=== PATIENT | male | born 1950 | race Caucasian/White ===

== ENCOUNTER 2021-06-13 16:53 | Inpatient (IN) | payer MEDICARE ==
[~2021-06-13] VITALS: Ht 185.4 cm; Wt 70.3 kg
[2021-06-13 16:55] VITALS: BP 123/65
[2021-06-13] MEDS ORDERED: TYLENOL325 M1 PO (17:07)
[2021-06-13] MEDS ORDERED: LIPITOR 20 MG T20 M1 PO (17:08)
[2021-06-13] MEDS ORDERED: ASA81BEC PO (17:08)
[2021-06-13] MEDS ORDERED: DONEPEZIL HCL10 M1 PO (17:09)
[2021-06-13] MEDS ORDERED: NITROSTAT0.4 M1 SUBLING (17:10)
[2021-06-13] MEDS ORDERED: PROSCAR 5MG TABL5 MG PO (17:10)
[2021-06-13] MEDS ORDERED: NAMENDA 10 MG T10 MG PO (17:10)
[2021-06-13] MEDS ORDERED: PROTONIX40 M2 PO (17:11)
[2021-06-13] MEDS ORDERED: CEFUROXIME250 MG PO (17:11)
[2021-06-13] MEDS ORDERED: TESSALON PERLE100 M1 PO (17:11)
[2021-06-13] MEDS ORDERED: DESYREL150 MG PO (17:11)
[2021-06-13 17:12] LABS: HEMATOCRIT 36.6 % (42.0-52.0); HEMOGLOBIN 11.5 gm/dL (14.0-18.0); MCH 24.4 pg (26.0-34.0); MCHC 31.4 g/dL (28.0-37.0); MCV 77.7 fL (80.0-100.0); MPV 8.7 fl. (7.2-11.1); NUCLEATED RBCS 0 /100WBC; PLATELET COUNT* 300 thou/uL (150-400); RBC 4.71 mil/uL (4.50-6.00); RDW-CV 14.8 % (10.5-14.5); WBC 19.1 thou/uL (4.0-11.0)
[2021-06-13 17:22] LABS: CREATININE 3.1 mg/dL (0.6-1.3); POTASSIUM 4.6 mmol/L (3.5-5.1)
[2021-06-13 17:26] LABS: ALBUMIN 2.9 g/dL (3.4-5.0); TOTAL BILIRUBIN 0.5 mg/dL (<0.1-1.0); TOTAL PROTEIN 8.1 g/dL (6.4-8.2)
[2021-06-13 17:40] LABS: URINE BILIRUBIN NEGATIVE (Negative); URINE BLOOD 3+ (Negative); URINE CLARITY HAZY; URINE COLOR YELLOW; URINE GLUCOSE-RANDOM NEGATIVE (Negative); URINE KETONES NEGATIVE (Negative); URINE LEUKOCYTES-REFLEX 2+ (Negative); URINE NITRITE-REFLEX POSITIVE (Negative); URINE PROTEIN 2+ (Negative); URINE SPECIFIC GRAVITY 1.025 (1.005-1.030); URINE UROBILINOGEN 0.2 E.U./dl (0.2-1.0)
[2021-06-13 17:52] LABS: URINE WBC-REFLEX >25 Many /HPF (0-5); WBC CLUMPS Few (None Seen)
[2021-06-13 17:53] LABS: CASTS None Seen /LPF (None Seen); CRYSTALS None Seen /LPF (None Seen); MUCUS None Seen strn/LPF (None Seen); SQUAMOUS 0-3 Few /LPF (0-3); URINE RBC >20 Many /HPF (0-2)
[2021-06-13 17:57] LABS: ABSOLUTE MONOCYTES 0.6 thou/uL (0.0-1.2); ABSOLUTE NEUTROPHILS 17.6 thou/uL (1.6-8.1); MICROCYTES 1+; PLATELET ESTIMATE ADEQUATE
[2021-06-13 17:58] LABS: ANISOCYTOSIS Occasional
--- NOTE | 2021-06-13 18:00 | NUR ---
A LEG BAG WAS PLACED ON PATIENT'S RIGHT LEG WITH URINE DRAINING INTO BAG. A NEW BRIEF WAS PLACED ON PATIENT WELL JEANS. PT LYING IN SUPINE POSITION WITH HOB ELEVATED AND PT IS CONNECTED TO ALL MONITORS.
--- NOTE | 2021-06-13 19:40 | NUR ---
PROVIDER NOTIFIED AT BEDSIDE REGARDING PT POSITIVE SEPSIS SCREENING.
--- NOTE | 2021-06-13 20:00 | NUR ---
DR. HOPKINS PAGED REGARDING PT BEING HYPOTENSIVE IN THE 70S. PROVIDER STATED TO BOLUS PT HOWEVER PT IS CURRENTLY BEING BOLUS. FLUIDS WILL CONTINUE AT 125/HR AFTER BOLUS PER PROVIDERS ORDERS. WILL CONTINUE TO MONITOR PT.
[2021-06-13 22:00] VITALS: BP 78/54
[2021-06-14 00:43] LABS: HEMATOCRIT 34.5 % (42.0-52.0); HEMOGLOBIN 10.5 gm/dL (14.0-18.0); MCH 24.4 pg (26.0-34.0); MCHC 30.6 g/dL (28.0-37.0); MCV 79.6 fL (80.0-100.0); MPV 8.9 fl. (7.2-11.1); RBC 4.33 mil/uL (4.50-6.00); RDW-CV 14.9 % (10.5-14.5); WBC 15.5 thou/uL (4.0-11.0)
[2021-06-14 00:45] LABS: CREATININE 2.8 mg/dL (0.6-1.3); POTASSIUM 4.5 mmol/L (3.5-5.1)
--- NOTE | 2021-06-14 00:46 | NUR ---
DR. HOPKINS NOTIFIED REGARDING PT BP SUSTAINING IN THE 70S. WILL BLADDER SCAN DUE TO DECREASE UOP. NO FURTHER INTERVENTIONS GIVENS AT THIS TIME. WILL CONTINUE TO MONITOR.
[2021-06-14 02:30] VITALS: BP 83/61
--- NOTE | 2021-06-14 05:10 | NUR ---
DR. HOPKINS PAGED REGARDING PTS COMPLAINTS OF CHEST PAIN. EKG DONE. NEW ORDERS PLACED PER PROVIDERS ORDERS. WILL CONTINUE TO MONITOR.
[2021-06-14 06:42] LABS: BE -8.7 mmol/L (-2 to +3); PCO2 25.3 mmHg (35.0-45.0); pH 7.387 (7.340-7.450)
[2021-06-14 06:44] LABS: PO2 252.7 mmHg (75.0-100.0)
--- NOTE | 2021-06-14 06:53 | NUR ---
RESULTS FOR TROPONIN CALLED TO DR. HOPKINS. NO FURTHER INTERVENTION AT THIS TIME.
[2021-06-14 06:58] VITALS: BP 108/72
--- NOTE | 2021-06-14 07:19 | NUR ---
DR. KOHLI PAGED REGARDING CRITICAL RESULTS. PROVIDER STATED TO TAKE PT OFF NRB AND PUT PT BACK ON NC AT 6L. HANDOFF GIVEN TO ALLEY BOCANEGRA
[2021-06-14 11:00] VITALS: BP 92/63
--- NOTE | 2021-06-14 11:24 | 2DMMODE ---
[place] [address] 2 D/M-MODE ECHOCARDIOGRAM Name: EDDIE GONG Room: [place] [address] ADM IN [place].#: [id number] Admission: 06/13/21 Attend Phys: Jose Onofre Discharge: Date of : 48 Date of Service: 06/14/21 1124 Report #: [id number] THIS REPORT FOR: cc: Sonido Pineda MD, Dennis R MD Liston, Michael J. MD [facility] ~ APPROVED REPORT Study performed: 06/14/2021 10:11:43 EXAM: Comprehensive 2D, Doppler, and color-flow Echocardiogram Patient Location: In-Patient Room #: ER Status: routine BSA: 1.93 HR: 118 bpm BP: 90/61 mmHg Rhythm: NSR Other Information Study Quality: Good Indications Elevated Troponin 2D Dimensions IVSd: 9.38 (7-11mm) LVOT Diam: 19.60 (18-24mm) LVDd: 43.64 mm PWd: 11.28 (7-11mm) Ascending Ao: 36.51 (22-36mm) LVDs: 24.45 (25-40mm) Aortic Root: 37.65 mm Volumes Left Atrial Volume (Systole) LA ESV Index: 35.60 mL/m2 Aortic Valve AoV Peak Bruno.: 0.97 m/s AO Peak Gr.: 3.78 mmHg LVOT Max P.58 mmHg AO Mean Gr.: 2.07 mmHg LVOT Mean P.29 mmHg LVOT Max V: 0.80 m/s AO V2 VTI: 11.16 cm LVOT Mean V: 0.53 m/s CLAUS (VTI): 2.60 cm2 LVOT V1 VTI: 9.61 [place] [address] 2 D/M-MODE ECHOCARDIOGRAM Name: EDDIE GONG Room: [address] IN [facility]#: [id number] Admission: 06/13/21 Attend Phys: Jose Onofre Discharge: Date of : 48 Date of Service: 06/14/21 1124 Report #: [id number] Mitral Valve E/A Ratio: 1.05 MV Decel. Time: 149.18 ms MV E Max Bruno.: 0.84 m/s MV PHT: 43.26 ms MVA (PHT): 5.09 cm2 TDI E/Lateral E': 5.25 E/Medial E': 10.50 Medial E' Bruno.: 0.08 m/s Lateral E' Bruno.: 0.16 m/s Tricuspid Valve RAP Estimate: 15.00 mmHg TR Peak Gr.: 34.51 mmHg RVSP: 49.00 mmHg PA Pressure: 49.00 mmHg Left Ventricle The left ventricle is normal size. There is normal LV segmental wall motion. There is normal left ventricular wall thickness. Left ventricular systolic function is normal. LVEF is 60-65%. Transmitral Doppler flow pattern suggests impaired LV relaxation. Right Ventricle Right ventricle is dilated. Moderately decreased with diffuse hypokinesis and apical sparing (McConnel'sl sign). Atria Left atrium is borderline dilated. Right atrium is moderately dilated. Aortic Valve The aortic valve is normal in structure. Trace aortic regurgitation. There is no aortic valvular stenosis. Mitral Valve The mitral valve is normal in structure. Mild mitral regurgitation. No evidence of mitral valve stenosis. There is mild mitral valve prolapse. Tricuspid Valve The tricuspid valve is normal in structure. Mild tricuspid regurgitation. Moderate pulmonary hypertension. The RVSP is 55-60 mmHg. [place] [address] 2 D/M-MODE ECHOCARDIOGRAM Name: EDDIE GONG Rafita Room: [address] IN [facility]#: [id number] Admission: 06/13/21 Attend Phys: Jose Onofre Discharge: Date of : 48 Date of Service: 06/14/21 1124 Report #: [id number] The pulmonary valve is normal in structure. There is no pulmonic valvular regurgitation. Great Vessels The aortic root is normal in size. IVC is dilated and collapses <50% with inspiration. Pericardium There is no pericardial effusion. <Conclusion> The left ventricle is normal size. There is normal left ventricular wall thickness. Left ventricular systolic function is normal. LVEF is 60-65%. Transmitral Doppler flow pattern suggests impaired LV relaxation. Right ventricle is dilated. Moderately decreased with diffuse hypokinesis and apical sparing (McConnel'sl sign). Left atrium is borderline dilated. Trace aortic regurgitation. There is mild mitral valve prolapse. Mild mitral regurgitation. Mild tricuspid regurgitation. Moderate pulmonary hypertension. The RVSP is 55-60 mmHg. IVC is dilated and collapses <50% with inspiration. Findings suspicious for pulmonary embolus. <ELECTRONICALLY SIGNED> By: Kadeem Kirk MD, FACC 06/14/21 1124 23 112 Kadeem Kirk MD, FACC /INF
[2021-06-14 14:34] LABS: APTT 29.6 Seconds (25.0-31.3); INR 1.1; PROTIME 11.5 Seconds (9.20-11.50)
[2021-06-14 15:00] VITALS: BP 93/63
--- NOTE | 2021-06-14 16:18 | EKG ---
[place] [address] ELECTROCARDIOGRAM REPORT Name: EDDIE GONG Room: [place] [address] ADM IN [facility]#: [id number] Admission: 06/13/21 Attend Phys: Jose Onofre Discharge: Date of : 48 Date of Service: 06/14/21 0505 Report #: [id number] THIS REPORT FOR: //name// [facility] ED Test Date: 2021-06-14 Test Time: 05:05:58 Pat Name: EDDIE GONG Department: Room: [place] [address] Gender: M Personal Service Representative: : 1950 Requested By: Kellen Mendiola Order Number: [id number] MD: Aaron Mckeon Measurements Intervals [place] Rate: 116 P: 75 MT: 151 QRS: 56 QRSD: 97 T: 49 QT: 322 QTc: 448 Interpretive Statements Sinus tachycardia Multiple ventricular premature complexes Probable left atrial enlargement Nonspecific T abnormalities, anterior leads No previous ECG available for comparison Electronically Signed On 06-14-2021 16:17:59 CDT by Aaron Mckeon [email or web address] <ELECTRONICALLY SIGNED> By: Aaron Mckeon MD, [facility] 06/14/21 1617 0505 0505 Aaron Mckeon MD, [facility] /EPI
[2021-06-14 19:29] LABS: ABSOLUTE LYMPHOCYTES 1.7 thou/uL (0.8-5.3); ABSOLUTE MONOCYTES 1.4 thou/uL (0.0-1.2); ABSOLUTE NEUTROPHILS 12.1 thou/uL (1.6-8.1); BASOPHILS 0.3 %; EOSINOPHILS 0.1 %; HEMATOCRIT 28.2 % (42.0-52.0); HEMOGLOBIN 8.7 gm/dL (14.0-18.0); LYMPHOCYTES 11.2 %; MCH 24.3 pg (26.0-34.0); MCHC 30.9 g/dL (28.0-37.0); MCV 78.7 fL (80.0-100.0); MPV 8.8 fl. (7.2-11.1); NUCLEATED RBCS 0 /100WBC; PLATELET COUNT* 224 thou/uL (150-400); POLYS 79.4 %; RBC 3.58 mil/uL (4.50-6.00); WBC 15.2 thou/uL (4.0-11.0)
[2021-06-14 19:38] LABS: CALCIUM 6.9 mg/dL (8.5-10.1); CREATININE 1.8 mg/dL (0.6-1.3); POTASSIUM 4.5 mmol/L (3.5-5.1)
[2021-06-14 19:42] LABS: TOTAL BILIRUBIN 0.7 mg/dL (<0.1-1.0); TOTAL PROTEIN 5.8 g/dL (6.4-8.2)
[2021-06-14 22:40] VITALS: BP 93/60
--- NOTE | 2021-06-15 14:30 | NUR ---
NOTE DISCHARGED TO [facility] on 06-14-21. Let [facility] know as there was not discharge MD or nursing summary or order to discharge or transfer CM CREMATOR REVIEW on 06-15-21 and asked that Note be placed in the MEDICAL RECORD: 75 year old males presents to the ED at [facility] on 06-13-21 with complaints of back pain with unknow onset. Per EMS is currently residing at [facility] and was sent for an increase in WBC's and Creatine. 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 Per ED assessment noted to have an obstruction and after a change in his Noel 2000cc's were removed. Per the daughter who presented at bedside in the ED the patient had a change in mental status on 06-09-21. She also reports that the patient had be being treated for UTI. The patient has been admitted with Sepsis -acute UTI - Acute Metabolic encephalopathy - Hypotension - Chronic Noel catheter secondary to obstructive uropathy - Acute renal failure with probable ATN - Noel catheter obstruction-HLD - Alzheimer's dementia - BPH - Esophageal reflux disease - Coronary artery disease including [place] Hx. COVID STAT ANTIGEN in the ED resulted in "Not Detected" and ED assessment notes Vaccinated with Pfizer on 12-03-20 and on 12-31-20. Cardiology-Renal and Surgery have been consulted on patient. Upon MD review orders will need to be obtained for PT/OT to evaluate patients needs for discharge. Patient is listed to have a DPOA daughter Abbi Cordero with phone number [phone] or a Rudy Cordero at [phone]. Spoke with daughter who reports that the patient did transfer to [facility] last evening and is currently in the ICU. Introduced the role of CM and explained after MD's continue to evaluate her condition the CM team will be ready to deploy for discharge needs including a return to Skilled services at [facility]. CM will continue to follow the case while at [facility].
== END 2021-06-14 22:40 | disposition hospice, inpatient (51) | DRG 871 ==
LOC: M.ERS 16:53 → M.TBA-ER 18:19
PROVIDERS: Emergency Medicine; Family Medicine; Internal Medicine; Personal Emergency Response Attendant; ADMIT Internal Medicine; ATTEND Internal Medicine
DX: A41.9 Sepsis, unspecified organism (principal); G93.41 Metabolic encephalopathy; R57.8 Other shock; N39.0 Urinary tract infection, site not specified; N13.8 Other obstructive and reflux uropathy; N17.9 Acute kidney failure, unspecified; I25.2 Old myocardial infarction; E78.2 Mixed hyperlipidemia; K21.9 Gastro-esophageal reflux disease without esophagitis; G47.00 Insomnia, unspecified; I25.10 Atherosclerotic heart disease of native coronary artery without angina pectoris; N40.1 Benign prostatic hyperplasia with lower urinary tract symptoms; R33.8 Other retention of urine; R31.9 Hematuria, unspecified; I95.9 Hypotension, unspecified; G30.9 Alzheimer's disease, unspecified; F02.80 Dementia in other diseases classified elsewhere, unspecified severity, without behavioral disturbance, psychotic disturbance, mood disturbance, and anxiety; N18.9 Chronic kidney disease, unspecified; Z20.822 Contact with and (suspected) exposure to COVID-19